=== PATIENT | male | born 1980 | race Caucasian/White ===

== ENCOUNTER 2020-07-11 02:34 | Emergency (ER) | payer MEDICAID, OTHER ==
[~2020-07-11] VITALS: Ht 175.3 cm; Wt 70.8 kg
[~2020-07-11 02:34] MED LIST: ELVI1TAB3 PO
--- NOTE | 2020-07-11 02:50 | NUR ---
PT BIBRA. PER REPORT PT FOUND UNDER THE BRIDGE UNRESPONSIVE W/ PINPOINT PUPILS. GIVEN IM NARCAN 2 MG ENROUTE. PT AWAKE, VSS, NAD NOTED. PT CONNECTED TO THE CONTACT CENTER DIRECTOR AND POX
[2020-07-11 02:54] LABS: BASOPHILS % (AUTO) 0.7 % (0.0-2.0); EOSINOPHILS % (AUTO) 3.3 % (0.0-6.0); HEMATOCRIT 38 % (39-51); HEMOGLOBIN 12.6 g/dL (13.5-17.5); LYMPHOCYTES # (AUTO) 1.9 /CMM (0.8-4.8); LYMPHOCYTES % (AUTO) 41.3 % (20.0-44.0); MEAN CORPUSCULAR HGB CONC 33 g/dl (31.0-36.0); MEAN CORPUSCULAR VOLUME 88 fL (80-96); MONOCYTES # (AUTO) 0.5 /CMM (0.1-1.30); MONOCYTES % (AUTO) 9.9 % (2.0-12.0); NEUTROPHILS # (AUTO) 2.1 /CMM (1.8-8.9); NEUTROPHILS % (AUTO) 44.8 % (43.0-81.0); PLATELET COUNT (AUTO) 229 /CMM (150-450); RED BLOOD CELL COUNT(AUTO) 4.33 MIL/uL (4.5-6.0); WHITE BLOOD COUNT (AUTO) 4.6 K/uL (4.3-11.0)
[2020-07-11 03:00] LABS: CALCIUM, SERUM 7.9 mg/dL (8.5-10.1); CARBON DIOXIDE 28 mmol/L (21-32); CHLORIDE 106 mmol/L (98-107); CREATININE 1.1 mg/dL (0.6-1.3); GLUCOSE 220 mg/dL (74-106); POTASSIUM 3.8 mmol/L (3.5-5.1); SODIUM SERUM 142 mmol/L (136-145); UREA NITROGEN, BLOOD 13 mg/dL (7-18)
[2020-07-11 03:09] LABS: ACETAMINOPHEN < 2 ug/ml (10-30); ALANINE AMINOTRANSFERASE 13 U/L (12-78); ALBUMIN 3.1 g/dL (3.4-5.0); ALCOHOL, BLOOD < 3 mg/dL (0-0); ALKALINE PHOSPHATASE 88 U/L (46-116); ASPARTATE AMINOTRANSFERASE 24 U/L (15-37); BILIRUBIN,DIRECT 0.1 mg/dL (0.0-0.2); BILIRUBIN,TOTAL 0.2 mg/dL (0.2-1.0); TOTAL PROTEIN, SERUM 7.2 g/dL (6.4-8.2)
[2020-07-11] MEDS ORDERED: NALO4SPR NS (03:46)
--- NOTE | 2020-07-11 06:11 | NUR ---
PT RESTING COMFORTABLY IN BED. VSS. NO ACUTE DISTRESS NOTED. WILL CONTINUE TO MONITOR FOR SAFETY
--- NOTE | 2020-07-11 07:19 | NUR ---
Patient discharged to home in stable condition. Written and verbal after care instructions given. Patient verbalizes understanding of instruction.pt. ambulatory with a steady gait. NAD noted.
[2020-07-11 07:20] VITALS: BP 121/84
== END 2020-07-11 07:20 | disposition home or self-care (01) ==
LOC: ER 02:37
DX: T40.2X1A Poisoning by other opioids, accidental (unintentional), initial encounter (principal); Z88.8 Allergy status to other drugs, medicaments and biological substances; Z88.9 Allergy status to unspecified drugs, medicaments and biological substances; Z60.2 Problems related to living alone; Z79.899 Other long term (current) drug therapy; Y92.89 Other specified places as the place of occurrence of the external cause
CPT/HCPCS: 36415; 80048-TC; 80076-TC; 85025-TC; G0480

== ENCOUNTER 2023-04-03 23:43 | Inpatient (IN) | payer OTHER ==
[~2023-04-03] VITALS: Ht 172.7 cm; Wt 79.8 kg
[~2023-04-03 23:43] MED LIST changes: +NALO4SPR NS
[2023-04-04] MEDS ORDERED: IV NS 0.9% 1,000 ML BAG IV ONE
[2023-04-04] MEDS ORDERED: Magnesium 1GM/D5W 100ML PREMIX 200 ML IV ONE (00:10)
[2023-04-04] MEDS ORDERED: LORAZEPAM INJ 2 MG/ML VIAL ONE ×2 (00:10→04:34)
[2023-04-04] MEDS: Magnesium 1GM/D5W 100ML PREMIX 100 ML IV SCH ×2 (00:18→01:34)
[2023-04-04 00:20] LABS: BASOPHILS % (AUTO) 0.4 % (0.0-2.0); EOSINOPHILS # (AUTO) 0.1 K/uL (0.0-0.7); EOSINOPHILS % (AUTO) 3.9 % (0.0-6.0); HEMATOCRIT 36 % (39-51); HEMOGLOBIN 11.8 g/dL (13.5-17.5); LYMPHOCYTES # (AUTO) 2.1 K/uL (0.8-4.8); LYMPHOCYTES % (AUTO) 54.3 % (20.0-44.0); MEAN CORPUSCULAR HEMOGLOBIN 29 PG (26.0-33.0); MEAN CORPUSCULAR HGB CONC 33 g/dl (31.0-36.0); MEAN CORPUSCULAR VOLUME 89 fL (80-96); MONOCYTES # (AUTO) 0.5 K/uL (0.1-1.30); MONOCYTES % (AUTO) 13.8 % (2.0-12.0); NEUTROPHILS # (AUTO) 1.1 K/uL (1.8-8.9); NEUTROPHILS % (AUTO) 27.6 % (43.0-81.0); PLATELET COUNT (AUTO) 198 K/uL (150-450); RED BLOOD CELL COUNT(AUTO) 4.02 MIL/uL (4.5-6.0); RED CELL DISTRIBUTION WIDTH 16.7 % (11.5-15.0); WHITE BLOOD COUNT (AUTO) 3.8 K/uL (4.3-11.0)
[2023-04-04] MEDS ORDERED: LORAZEPAM INJ 2 MG/ML VIAL IV ONE ×2 (00:30→05:00)
[2023-04-04 00:36] LABS: ACETAMINOPHEN 0 ug/ml (10-30); ALANINE AMINOTRANSFERASE 33 U/L (12-78); ALBUMIN 3.2 g/dL (3.4-5.0); ALCOHOL, BLOOD < 3 mg/dL (0-10); ALKALINE PHOSPHATASE 121 U/L (46-116); ASPARTATE AMINOTRANSFERASE 26 U/L (15-37); BILIRUBIN,DIRECT 0.1 mg/dL (0.0-0.2); BILIRUBIN,TOTAL 0.3 mg/dL (0.2-1.0); CALCIUM, SERUM 8.5 mg/dL (8.5-10.1); CARBON DIOXIDE 22 mmol/L (21-32); CHLORIDE 106 mmol/L (98-107); CREATININE 1.3 mg/dL (0.6-1.3); GLUCOSE 174 mg/dL (74-106); SALICYLATE 1.1 mg/dL (2.8-20.0); SODIUM SERUM 137 mmol/L (136-145); TOTAL PROTEIN, SERUM 7.5 g/dL (6.4-8.2); UREA NITROGEN, BLOOD 19 mg/dL (7-18)
[2023-04-04 00:37] LABS: POTASSIUM 2.6 mmol/L (3.5-5.1)
[2023-04-04] MEDS ORDERED: POTASSIUM CHLORIDE 10 MEQ/50 ML PREMIXED IVPB FOR PERIPHERAL LINE IV ONE (01:00)
[2023-04-04] MEDS ORDERED: POTASSIUM CL. PREMIX PERIPHER. 50 ML ONE (01:01)
[2023-04-04] MEDS ORDERED: POTASSIUM CL. PREMIX PERIPHER. 150 ML ONE (01:09)
[2023-04-04 01:29] LABS: APPEARANCE,URINE SLIGHTLY CLOUDY (CLEAR); BILIRUBIN,URINE NEGATIVE (NEGATIVE); BLOOD, URINE NEGATIVE Ery/uL (NEGATIVE); COLOR,URINE YELLOW (YELLOW); KETONES,URINE TRACE mg/dL (NEGATIVE); LEUKOCYTE ESTERASE ,URINE NEGATIVE (NEGATIVE); NITRITE, URINE NEGATIVE (NEGATIVE); PH,URINE 5.5 (5.0-8.0); PROTEIN,URINE 2+ mg/dl (NEGATIVE); UGLUCOSE NEGATIVE (NEGATIVE); UROBILINOGEN,URINE 0.2 EU/dL (0.2)
[2023-04-04 01:31] LABS: ADD URINE CULTURE NO; BACTERIA,URINE Rare /HPF (None Seen); RBC,URINE 0-2 /HPF (0-2); SQUAMOUS EPITHELIAL CELL,UR Few /HPF (None Seen); WBC,URINE 0-2 /HPF (0-3)
[2023-04-04 01:41] LABS: AMPHETAMINE, URINE NEGATIVE (NEGATIVE); BARBITURATE, URINE NEGATIVE (NEGATIVE); BENZODIAZEPINE, URINE NEGATIVE (NEGATIVE); CANNABINOID, URINE NEGATIVE (NEGATIVE); COCCAINE, URINE NEGATIVE (NEGATIVE); OPIATE, URINE NEGATIVE (NEGATIVE); PHENCYCLIDINE SCREEN,URINE NEGATIVE (NEGATIVE)
[2023-04-04] MEDS ORDERED: ACETAMINOPHEN 325 MG TABLET PO PRN (03:00)
[2023-04-04] MEDS ORDERED: ONDANSETRON HCL/PF 4 MG/2 ML VIAL IVP PRN (03:00)
[2023-04-04] MEDS: ENOXAPARIN SODIUM 40 MG/0.4 ML DISP.SYRIN SQ SCH (05:58)
[2023-04-04 07:07] VITALS: BP 103/64; TEMP 97.8; O2SAT 97
[2023-04-04] MEDS: PANTOPRAZOLE 40 MG TABLET.DR PO SCH (07:30)
[2023-04-04 08:00] VITALS: BP 125/86; TEMP 96.8; O2SAT 100
[2023-04-04 09:26] LABS: BASOPHILS % (AUTO) 0.2 % (0.0-2.0); EOSINOPHILS % (AUTO) 0.8 % (0.0-6.0); HEMATOCRIT 34 % (39-51); HEMOGLOBIN 11.1 g/dL (13.5-17.5); LYMPHOCYTES % (AUTO) 27.8 % (20.0-44.0); MEAN CORPUSCULAR HEMOGLOBIN 29 PG (26.0-33.0); MEAN CORPUSCULAR HGB CONC 33 g/dl (31.0-36.0); MEAN CORPUSCULAR VOLUME 89 fL (80-96); MONOCYTES # (AUTO) 0.5 K/uL (0.1-1.30); MONOCYTES % (AUTO) 13.2 % (2.0-12.0); NEUTROPHILS # (AUTO) 2.1 K/uL (1.8-8.9); PLATELET COUNT (AUTO) 204 K/uL (150-450); RED BLOOD CELL COUNT(AUTO) 3.82 MIL/uL (4.5-6.0); RED CELL DISTRIBUTION WIDTH 16.5 % (11.5-15.0); WHITE BLOOD COUNT (AUTO) 3.6 K/uL (4.3-11.0)
[2023-04-04] MEDS ORDERED: CLOP75TA15 PO (10:18)
[2023-04-04] MEDS ORDERED: QUET100T PO (10:18)
[2023-04-04] MEDS ORDERED: FLUC200T8 PO (10:18)
[2023-04-04] MEDS ORDERED: BICT1TAB PO (10:18)
[2023-04-04] MEDS ORDERED: ATOR40TA PO (10:18)
[2023-04-04] MEDS ORDERED: FAMO40TA7 PO (10:18)
[2023-04-04 10:26] LABS: CALCIUM, SERUM 8.9 mg/dL (8.5-10.1); CREATININE 0.8 mg/dL (0.6-1.3); MAGNESIUM 2.3 mg/dL (1.8-2.4); PHOSPHORUS 3.3 mg/dL (2.5-4.9); POTASSIUM 3.5 mmol/L (3.5-5.1)
[2023-04-04] MEDS: IV NS 0.9% 1,000 ML IV PRN ×2 (11:08→21:27)
[2023-04-04 12:26] LABS: CALCIUM, SERUM 8.7 mg/dL (8.5-10.1); CREATININE 0.9 mg/dL (0.6-1.3); POTASSIUM 3.8 mmol/L (3.5-5.1)
[2023-04-04 16:00] VITALS: BP 126/82; TEMP 97.5; O2SAT 97
[2023-04-05] VITALS: BP 95/64; TEMP 98; O2SAT 96
[2023-04-05] MEDS: ENOXAPARIN SODIUM 40 MG/0.4 ML DISP.SYRIN SQ SCH (02:49)
[2023-04-05 04:00] VITALS: BP 100/58; TEMP 98.2; O2SAT 97
[2023-04-05] MEDS: PANTOPRAZOLE 40 MG TABLET.DR PO SCH (07:22)
[2023-04-05 07:43] LABS: CALCIUM, SERUM 8.6 mg/dL (8.5-10.1); CREATININE 0.8 mg/dL (0.6-1.3); MAGNESIUM 1.8 mg/dL (1.8-2.4); POTASSIUM 3.7 mmol/L (3.5-5.1)
[2023-04-05 08:30] VITALS: BP 100/61; TEMP 98.7; O2SAT 95
[2023-04-05] MEDS: FLUCONAZOLE (100 MG) 100 MG TABLET PO SCH (08:52)
[2023-04-05] MEDS: CLOPIDOGREL BISULFATE 75 MG TABLET PO SCH (08:53)
[2023-04-05] MEDS: ATORVASTATIN 40 MG TABLET PO SCH (08:53)
[2023-04-05] MEDS ORDERED: LORAZEPAM 1 MG TABLET PO PRN (10:00)
[2023-04-05] MEDS: risperiDONE 1 MG TABLET PO SCH ×2 (10:39→16:44)
[2023-04-05 13:00] VITALS: BP 108/68; TEMP 99; O2SAT 95
[2023-04-05 16:00] VITALS: BP 111/76; TEMP 98.8; O2SAT 94
[2023-04-05] MEDS ORDERED: MAGN400T8 PO (16:32)
[2023-04-05] MEDS ORDERED: BIKTARVY PO SCH (17:00)
[2023-04-05 20:00] VITALS: BP 107/72; TEMP 98.8; O2SAT 98
[2023-04-06] MEDS: ENOXAPARIN SODIUM 40 MG/0.4 ML DISP.SYRIN SQ SCH (03:36)
[2023-04-06 04:00] VITALS: BP 110/75; TEMP 98.6; O2SAT 98
[2023-04-06 08:00] VITALS: BP 115/77; TEMP 98.2; O2SAT 95
[2023-04-06] MEDS: PANTOPRAZOLE 40 MG TABLET.DR PO SCH (08:04)
[2023-04-06] MEDS: FLUCONAZOLE (100 MG) 100 MG TABLET PO SCH (08:34)
[2023-04-06] MEDS: CLOPIDOGREL BISULFATE 75 MG TABLET PO SCH (08:35)
[2023-04-06] MEDS: ATORVASTATIN 40 MG TABLET PO SCH (08:35)
[2023-04-06] MEDS: risperiDONE 1 MG TABLET PO SCH (08:35)
[2023-04-06] MEDS ORDERED: RISP1TAB7 PO (09:59)
[2023-04-06 12:00] VITALS: BP 110/79; TEMP 98.3; O2SAT 95
== END 2023-04-06 13:10 | DRG 817 ==
LOC: ER 23:44 → TELE 04-04 04:14 → MED 04-06 11:47
PROVIDERS: ADMIT Nurse Practitioner Acute Care; ATTEND Internal Medicine
DX: T43.592A Poisoning by other antipsychotics and neuroleptics, intentional self-harm, initial encounter (principal); G92.8 Other toxic encephalopathy; F20.0 Paranoid schizophrenia; F25.1 Schizoaffective disorder, depressive type; D72.819 Decreased white blood cell count, unspecified; Y92.009 Unspecified place in unspecified non-institutional (private) residence as the place of occurrence of the external cause; E87.6 Hypokalemia; F32.A Depression, unspecified; I10 Essential (primary) hypertension; Z20.822 Contact with and (suspected) exposure to COVID-19
CPT/HCPCS: 36415; 80048-TC; 80061-TC; 80076-TC; 81001; 83735-TC; 84100-TC; 85025-TC; A4223; C9803; G0378; G0480; J1650; J2060; J3475; J3480; J7030

== ENCOUNTER 2023-04-11 11:45 | Emergency (ER) | payer MEDICAID, OTHER ==
[~2023-04-11 11:45] MED LIST changes: +ATOR40TA PO; +BICT1TAB PO; +CLOP75TA15 PO; -ELVI1TAB3 PO; +FAMO40TA7 PO; +FLUC200T8 PO; +MAGN400T8 PO; -NALO4SPR NS; +RISP1TAB7 PO
== END 2023-04-11 14:19 | disposition left against medical advice (07) ==
LOC: ER 11:57
DX: Z00.00 Encounter for general adult medical examination without abnormal findings (principal); Z53.21 Procedure and treatment not carried out due to patient leaving prior to being seen by health care provider

== ENCOUNTER 2023-04-15 10:59 | Emergency (ER) | payer MEDICAID, OTHER ==
[~2023-04-15] VITALS: Ht 172.7 cm; Wt 77.1 kg
[2023-04-15 12:50] LABS: BASOPHILS % (AUTO) 0.4 % (0.0-2.0); EOSINOPHILS # (AUTO) 0.1 K/uL (0.0-0.7); EOSINOPHILS % (AUTO) 2.5 % (0.0-6.0); HEMATOCRIT 40 % (39-51); HEMOGLOBIN 13.4 g/dL (13.5-17.5); LYMPHOCYTES # (AUTO) 1.2 K/uL (0.8-4.8); LYMPHOCYTES % (AUTO) 25.8 % (20.0-44.0); MEAN CORPUSCULAR HEMOGLOBIN 29 PG (26.0-33.0); MEAN CORPUSCULAR HGB CONC 33 g/dl (31.0-36.0); MEAN CORPUSCULAR VOLUME 89 fL (80-96); MONOCYTES # (AUTO) 0.4 K/uL (0.1-1.30); MONOCYTES % (AUTO) 9.1 % (2.0-12.0); NEUTROPHILS # (AUTO) 2.9 K/uL (1.8-8.9); NEUTROPHILS % (AUTO) 62.2 % (43.0-81.0); PLATELET COUNT (AUTO) 292 K/uL (150-450); RED BLOOD CELL COUNT(AUTO) 4.55 MIL/uL (4.5-6.0); RED CELL DISTRIBUTION WIDTH 15.7 % (11.5-15.0); WHITE BLOOD COUNT (AUTO) 4.6 K/uL (4.3-11.0)
[2023-04-15 12:57] LABS: CALCIUM, SERUM 9.4 mg/dL (8.5-10.1); CARBON DIOXIDE 24 mmol/L (21-32); CHLORIDE 103 mmol/L (98-107); CREATININE 0.9 mg/dL (0.6-1.3); GLUCOSE 98 mg/dL (74-106); POTASSIUM 4.1 mmol/L (3.5-5.1); SODIUM SERUM 135 mmol/L (136-145); UREA NITROGEN, BLOOD 18 mg/dL (7-18)
[2023-04-15 13:11] LABS: ALANINE AMINOTRANSFERASE 29 U/L (12-78); ALBUMIN 3.6 g/dL (3.4-5.0); ALKALINE PHOSPHATASE 101 U/L (46-116); ASPARTATE AMINOTRANSFERASE 21 U/L (15-37); BILIRUBIN,DIRECT 0.1 mg/dL (0.0-0.2); BILIRUBIN,TOTAL 0.2 mg/dL (0.2-1.0); TOTAL PROTEIN, SERUM 8.6 g/dL (6.4-8.2)
[2023-04-15 13:38] LABS: AMPHETAMINE, URINE NEGATIVE (NEGATIVE); BARBITURATE, URINE NEGATIVE (NEGATIVE); BENZODIAZEPINE, URINE NEGATIVE (NEGATIVE); CANNABINOID, URINE NEGATIVE (NEGATIVE); COCCAINE, URINE NEGATIVE (NEGATIVE); OPIATE, URINE NEGATIVE (NEGATIVE); PHENCYCLIDINE SCREEN,URINE NEGATIVE (NEGATIVE)
[2023-04-15 13:41] LABS: APPEARANCE,URINE CLEAR (CLEAR); BILIRUBIN,URINE NEGATIVE (NEGATIVE); BLOOD, URINE NEGATIVE Ery/uL (NEGATIVE); COLOR,URINE YELLOW (YELLOW); KETONES,URINE NEGATIVE (NEGATIVE); LEUKOCYTE ESTERASE ,URINE NEGATIVE (NEGATIVE); NITRITE, URINE NEGATIVE (NEGATIVE); PROTEIN,URINE NEGATIVE (NEGATIVE); UGLUCOSE NEGATIVE (NEGATIVE); UROBILINOGEN,URINE 0.2 EU/dL (0.2)
[2023-04-15 13:54] LABS: ACETAMINOPHEN <10 ug/ml (10-30); ALCOHOL, BLOOD < 3 mg/dL (0-10); SALICYLATE 2.1 mg/dL (2.8-20.0)
[2023-04-16 01:18] VITALS: BP 119/68; TEMP 98; O2SAT 98
== END 2023-04-15 21:50 ==
LOC: ER 10:59
DX: R45.851 Suicidal ideations (principal); E78.5 Hyperlipidemia, unspecified; F20.9 Schizophrenia, unspecified; Z20.822 Contact with and (suspected) exposure to COVID-19; Z79.899 Other long term (current) drug therapy; Z88.1 Allergy status to other antibiotic agents
CPT/HCPCS: 36415; 80048-TC; 80076-TC; 85025-TC; G0480